=== PATIENT | female | born 1955 | race Caucasian/White ===

== ENCOUNTER 2016-12-01 10:29 | Emergency (ER) | payer OTHER ==
[~2016-12-01] VITALS: Ht 167.6 cm; Wt 95.0 kg
[~2016-12-01 10:29] MED LIST: ASPI-650; HYDR12.58; LISI20TA11; SYN15
[2016-12-01 10:32] VITALS: Ht 167.6 cm; Wt 95.0 kg
[2016-12-01] MEDS ORDERED: KETOROLAC 30 MG INJ IV STA (11:05)
[2016-12-01 11:34] LABS: ADD SCAN DIFF NO
[2016-12-01 11:37] LABS: BASOPHILS % 0.5 % (0.0-2.0); EOSINOPHILS # 0.2 10^3/ul (0.0-0.5); HEMATOCRIT 44.6 % (37.0-47.0); HEMOGLOBIN 14.4 g/dl (12.0-16.0); LYMPHOCYTES # 2.1 10^3/ul (0.8-2.9); LYMPHOCYTES % 35.2 % (15.0-51.0); MEAN CORPUSCULAR HEMOGLOBIN 29.6 pg (29.0-33.0); MEAN CORPUSCULAR HGB CONC 32.3 g/dl (32.0-37.0); MEAN CORPUSCULAR VOLUME 91.8 fl (82.0-101.0); MEAN PLATELET VOLUME 10.7 fl (7.4-10.4); MONOCYTE # 0.5 10^3/ul (0.3-0.9); NEUTROPHIL # 3.1 10^3/ul (1.6-7.5); PLATELET COUNT 190 10^3/UL (140-415); RED BLOOD COUNT 4.86 10^6/ul (4.20-5.40); RED CELL DISTRIBUTION WIDTH 12.8 % (11.5-14.5)
--- NOTE | 2016-12-01 12:01 | RADRPT ---
PROCEDURE: CT Abdomen and Pelvis without contrast. CLINICAL INDICATION: Left sided abdominal pain. TECHNIQUE: CT scan of the abdomen and pelvis without contrast was performed on a multidetector hig h-resolution CT scanner. The patient was scanned without intravenous contrast. Coronal and sagittal reformatted images were obtained from the axial source images. Images were reviewed on a high-resol [employer] PACS workstation. One or more of the following dose reduction techniques were used: Automated exposure control, adjustment of the mA and/or kV according to patient size, use of iterative recon struction technique. The total exam CTDI equals 20.84 mGy and the total exam DLP equals 1176.23 mGy -cm. COMPARISON: None. FINDINGS: CT abdomen: The lung bases are clear. The heart size is normal, without pericardial thickening or effusion. The liver is normal in size and density without focal mass or intrahepatic biliary dilatation. The spleen is normal in size and homogeneous in density. The stomach is grossly unremarkable. The panc reas as visualized is normal. The gallbladder and biliary tree are unremarkable and there is no fani dence for biliary dilatation. The adrenal glands are symmetric and normal. The kidneys are symmetr ically unremarkable as well. No renal calculus or obstructive uropathy or mass lesion is seen. The aorta is of normal caliber. A prominent right para-aortic lymph node measures 1.4 x 1.9 x 1.8 c m at the level of L4. The ted hepatis region is clear. The small bowel and mesentery, as visuali zed, are unremarkable. There is a moderate sized fat-containing umbilical hernia measuring 4.1 x 2.2 x 4.2 cm with associated mild fat stranding. There is no bowel involvement. The fascial defect leighton sures 1.[address] pelvis: The small bowel loops situated within the pelvis are unremarkable. The pelvic organs are normal. T he pelvic sidewalls and inguinal regions are clear. Scattered diverticula are present throughout th e transverse, descending, and proximal sigmoid colon without evidence of diverticulitis. No mass, lymphadenopathy, or free fluid is seen. No acute inflammation is seen. The surrounding osseous structures are unremarkable. No osteolytic or osteoblastic lesion is detec kimo. IMPRESSION: 1. Moderate sized fat-containing umbilical hernia with minimal fat stranding, may represent mild st rangulation. No associated bowel involvement. 2. No intra-abdominal or intrapelvic acute inflammatory process or mass. 3. Diverticulosis without evidence of diverticulitis. 4. Prominent solitary right periaortic lymph node, nonspecific. RPTAT: EE .Adithya Banks MD, Date Time Electronically viewed and signed by .Adithya Banks MD, MD on 12/01/2016 12:01 .A/
[2016-12-01 12:02] LABS: ALANINE AMINOTRANSFERASE 30 IU/L (13-69); ALBUMIN 4.4 g/dl (3.3-4.9); ALBUMIN/GLOBULIN RATIO 1.18; ALKALINE PHOSPHATASE 100 IU/L (42-121); ANION GAP 12 (8-16); ASPARTATE AMINO TRANSFERASE 20 IU/L (15-46); BILIRUBIN,INDIRECT 0.5 mg/dl (0-1.1); BILIRUBIN,TOTAL 0.5 mg/dl (0.2-1.3); BLOOD UREA NITROGEN 17 mg/dl (7-20); CALCIUM 9.6 mg/dl (8.4-10.2); CARBON DIOXIDE 28 mmol/L (21-31); CHLORIDE 104 mmol/L (97-110); GLUCOSE 101 mg/dl (70-220); POTASSIUM 4.1 mmol/L (3.5-5.1); SODIUM 140 mmol/L (135-144); TOTAL PROTEIN 8.1 g/dl (6.1-8.1)
--- NOTE | 2016-12-01 12:05 | RADRPT ---
PROCEDURE: XR Chest. CLINICAL INDICATION: Abdominal pain. TECHNIQUE: PA and Lateral views of the chest were obtained. COMPARISON: None. FINDINGS: The soft tissues are normal. There are osteophytes in the thoracic spine. The heart is upper limit s of normal. The cardiomediastinal silhouette and hilar structures are normal. The pulmonary vascul ature is normal. There is a left-sided aorta. The lungs are clear. The costophrenic angles are norm al. IMPRESSION: 1. Spondylosis of the thoracic spine with no evidence of active cardiopulmonary disease. 2. No evidence of pneumoperitoneum. RPTAT:AAJJ Physician Adair Date Time Electronically viewed and signed by Physician Adair on 12/01/2016 12:05 /
[2016-12-01 12:13] LABS: TROPONIN-I < 0.012 ng/ml (0.00-0.12)
[2016-12-01] MEDS ORDERED: HYDR12.58 PO (12:15)
[2016-12-01] MEDS ORDERED: LEVO112T42 PO (12:15)
[2016-12-01] MEDS ORDERED: ASPI-664 PO (12:15)
[2016-12-01] MEDS ORDERED: BIOT10004 PO (12:16)
[2016-12-01] MEDS ORDERED: LISI20TA11 PO (12:16)
[2016-12-01] MEDS ORDERED: MAGN400T27 PO (12:17)
[2016-12-01] MEDS ORDERED: CYAN100 PO (12:18)
[2016-12-01] MEDS ORDERED: CICL34.6 TP (12:18)
[2016-12-01] MEDS ORDERED: ONDA4TAB14 PO (12:19)
[2016-12-01] MEDS ORDERED: HYDR-902 PO (12:19)
[2016-12-01] MEDS ORDERED: OMEG1CAP9 PO (12:19)
--- NOTE | 2016-12-01 12:25 | ERD ---
ER Documentation Chief Complaint Date/Time DATE: 12/01/16 TIME: 12:21 Chief Complaint left rib pain since yesterday HPI Patient is a 61-year-old female with hypertension and thyroid disease who presents with left-sided "rib cage pain". The symptoms started yesterday morning. Patient felt like he was sucker punched. It is worse with movement. She has no trauma. She has had no treatment yet. It was constant. She said that her primary doctor is Dr. Aguilar. ROS All systems reviewed and are negative except as per history of present illness. Medications Home Meds Active Scripts Ondansetron (Ondansetron Odt) 4 Mg Tab.rapdis, 4 MG PO Q6H Y for NAUSEA AND/OR VOMITING, #30 TAB Prov:MAHSA BRAGG MD 12/01/16 Hydrocodone/Acetaminophen ([place] 10-325 Tablet) 1 Each Tablet, 1 TAB PO Q6H Y for PAIN, #7 TAB Prov:MAHSA BRAGG MD 12/01/16 Reported Medications Emerson-3 Fatty Acids/Fish Oil (Fish Oil 1,000 mg Softgel) 1 Each Capsule, 1 EACH PO DAILY, CAP 12/01/16 Cyanocobalamin* (Vitamin B12*) 100 Mcg Tab, 100 MCG PO DAILY, TAB 12/01/16 Ciclopirox/Ure/Camph/Menth/Euc (CICLOPIROX 8% TREATMENT KIT) 34.6 Ml Solution, 1 APPLIC TP DAILY, BOTTLE 12/01/16 Magnesium Oxide* (Mag-Oxide*) 400 Mg Tablet, 400 MG PO DAILY, TAB 12/01/16 Biotin (Biotin) 1,000 Mcg Tab.chew, 5000 MCG PO DAILY, TAB.CHEW 12/01/16 Lisinopril* (Lisinopril*) 20 Mg Tablet, 20 MG PO DAILY, #30 TAB 12/01/16 Hydrochlorothiazide* (Hydrochlorothiazide*) 12.5 Mg Tablet, 12.5 MG PO DAILY, # 30 TAB 12/01/16 Aspirin (Low Dose Aspirin) 81 Mg Tablet.dr, 81 MG PO DAILY, #30 TAB 12/01/16 Levothyroxine Sodium* (Levoxyl*) 112 Mcg Tablet, 112 MCG PO BEFORE BREAKFAST, # 30 TAB 12/01/16 Discontinued Reported Medications Aspirin (Aspirin) 81 Mg Tablet 09/25/12 Hydrochlorothiazide* (Hydrochlorothiazide*) 12.5 Mg Tablet 09/25/12 Lisinopril* (Lisinopril*) 20 Mg Tablet 09/25/12 Levothyroxine Sodium* (Synthroid*) 150 Mcg Tablet 09/25/12 Allergies Allergies: Coded Allergies: No Known Drug Allergies (Verified Allergy, Unknown, 12/01/16) PMhx/Soc History of Surgery: Yes (C/SECTION X2, APPENDECTOMY, ECTOPIC, ) Anesthesia Reaction: No Hx Neurological Disorder: No Hx Respiratory Disorders: No Hx Cardiac Disorders: Yes (HTN) Hx Psychiatric Problems: No Hx Miscellaneous Medical Probl: Yes (HYPOTHYROID) Hx Alcohol Use: No Hx Substance Use: No Hx Tobacco Use: No Smoking Status: Never smoker FmHx Family History: diabetes Physical Exam Vitals Vital Signs Date Time Temp Pulse Resp B/P Pulse Ox O2 Delivery O2 Flow Rate FiO2 12/01/16 10:45 60 18 146/96 97 Room Air 12/01/16 10:32 98.3 76 18 121/79 100 Physical Exam Const: No acute distress Head: Atraumatic Eyes: Normal Conjunctiva ENT: Normal External Ears, Nose and Mouth. Neck: Full range of motion..~ No meningismus. Resp: Clear to auscultation bilaterally Cardio: Regular rate and rhythm, no murmurs Abd: Soft, left upper quadrant pain without rebound or guarding Skin: No petechiae or rashes Back: No midline or flank tenderness Ext: No cyanosis, or edema Neur: Awake and alert Psych: Normal Mood and Affect Result Diagram: 12/01/16 1100 12/01/16 1100 Results 24 hrs Laboratory Tests Test 12/01/16 11:00 White Blood Count 6.010^3/ul Red Blood Count 4.8610^6/ul Hemoglobin 14.4g/dl Hematocrit 44.6% Mean Corpuscular Volume 91.8fl Mean Corpuscular Hemoglobin 29.6pg Mean Corpuscular Hemoglobin Concent 32.3g/dl Red Cell Distribution Width 12.8% Platelet Count 12760^3/UL Mean Platelet Volume 10.7fl Neutrophils % 52.0% Lymphocytes % 35.2% Monocytes % 8.0% Eosinophils % 4.0% Basophils % 0.5% Nucleated Red Blood Cells % 0.0/100WBC Neutrophils # 3.110^3/ul Lymphocytes # 2.110^3/ul Monocytes # 0.510^3/ul Eosinophils # 0.210^3/ul Basophils # 0.010^3/ul Nucleated Red Blood Cells # 0.010^3/ul Sodium Level 140mmol/L Potassium Level 4.1mmol/L Chloride Level 104mmol/L Carbon Dioxide Level 28mmol/L Anion Gap 12 Blood Urea Nitrogen 17mg/dl Creatinine 0.80mg/dl Glucose Level 101mg/dl Calcium Level 9.6mg/dl Total Bilirubin 0.5mg/dl Direct Bilirubin 0.00mg/dl Indirect Bilirubin 0.5mg/dl Aspartate Amino Transf (AST/SGOT) 20IU/L Alanine Aminotransferase (ALT/SGPT) 30IU/L Alkaline Phosphatase 100IU/L Troponin I < 0.012ng/ml Total Protein 8.1g/dl Albumin 4.4g/dl Globulin 3.70g/dl Albumin/Globulin Ratio 1.18 Lipase 139U/L Current Medications Medications (Trade) Dose Ordered Sig/Tyrese Route PRN Reason Start Time Stop Time Status Last Admin Dose Admin Ketorolac Tromethamine (Toradol) 30 mg ONCE STAT IV 12/01/16 11:05 12/01/16 11:06 DC 12/01/16 11:22 Procedures/MDM EKG read by me: Rate/Rhythm: First-degree AV block at a rate of 55 Intervals: Prolonged IN interval Impression: First-degree AV block CT scan shows umbilical hernia but no other surgical process per radiology. Patient is a 61-year-old female with hypertension who presents with abdominal pain. EKG shows no signs of acute ischemia. CT scan shows no signs of obstruction or other surgical process. At this point I doubt cholecystitis, pancreatitis, appendicitis, or bowel obstruction. I believe outpatient management is appropriate. The patient went to follow-up closely with a primary doctor within 24 hours for reevaluation. The patient will be given a prescription for [place] and Zofran. Departure Diagnosis: Primary Impression: Rib pain Condition: Fair Patient Instructions: Abdominal Pain, Unknown Cause, (Female) Referrals: PEARL SMITH MD (PCP) Additional Instructions: Call your primary care doctor TOMORROW for an appointment during the next 1-2 days.See the doctor sooner or return here if your condition worsens before your appointment time. MAHSA BRAGG MD December 01, 2016 12:25
[2016-12-01 12:50] VITALS: BP 114/71; PULSE 57; RESP 16
== END 2016-12-01 12:53 | disposition home or self-care (01) ==
LOC: FTE 10:29 → E/R 12:53
DX: R07.81 Pleurodynia (principal); R40.2142 Coma scale, eyes open, spontaneous, at arrival to emergency department; R40.2362 Coma scale, best motor response, obeys commands, at arrival to emergency department; I10 Essential (primary) hypertension; E03.9 Hypothyroidism, unspecified; Z79.82 Long term (current) use of aspirin
CPT/HCPCS: 36415; 71010; 74176; 80053; 83690; 84484; 85025; 93005; 96374; 99285; J1885